=== PATIENT | female | born 1950 | race Caucasian/White ===

== ENCOUNTER → 2017-07-14 | Outpatient (CLI) | payer MEDICARE, BC ==
[~2017-07-14] MED LIST: ANAS1 PO; ASPI81TA23 PO; BUPR150T3 PO; CALC1TAB12 PO; GLUC1TAB38 PO; MULTTAB67 PO; SACC1CAP3 PO
[2017-07-14 14:13] LABS: AUTOMATED NEUTROPHIL # 4.1 TH/MM3 (1.8-7.7); BASOPHIL # 0.1 TH/MM3 (0-0.2); EOSINOPHIL % 0.7 % (0.0-4.0); HEMATOCRIT 38.4 % (35.0-46.0); HEMOGLOBIN 12.9 GM/DL (11.6-15.3); LYMPH % 20.8 % (9.0-44.0); LYMPHOCYTE # 1.2 TH/MM3 (1.0-4.8); MEAN CELL VOLUME 93.6 FL (80.0-100.0); MEAN CORPUSCULAR HEMOGLOBIN 31.5 PG (27.0-34.0); MEAN CORPUSCULAR HGB CONC 33.7 % (32.0-36.0); MEAN PLATELET VOLUME 7.8 FL (7.0-11.0); MONOCYTE # 0.5 TH/MM3 (0-0.9); NEUT % 69.5 % (16.0-70.0); PLATELET COUNT 254 TH/MM3 (150-450); WHITE BLOOD COUNT 5.9 TH/MM3 (4.0-11.0)
[2017-07-14 14:19] LABS: BILIRUBIN, URINE NEG (NEG); BLOOD, URINE NEG (NEG); GLUCOSE,URINE NEG (NEG); KETONE, URINE NEG (NEG); MUCUS URINE FEW /lpf (OCC); NITRITE,URINE NEG (NEG); PH, URINE 5.5 (5.0-8.5); URINE COLOR COLORLESS (YELLW/STRAW); URINE LEUKOCYTE ESTERASE NEG (NEG)
--- NOTE | 2017-07-15 14:42 | EKG ---
Date Performed: 07/14/2017 Time Performed: 12:49:27 PTAGE: 67 years EKG: Sinus rhythm POSSIBLE LEFT ATRIAL ENLARGEMENT INCOMPLETE RIGHT BUNDLE BRANCH BLOCK BORDERLINE ECG NO PREVIOUS TRACING DOCTOR: Angle Sorenson Interpretating Date/Time 07/15/2017 14:33:16
== END ==
LOC: CPRE 12:22
PROVIDERS: ATTEND Obstetrics & Gynecology
DX: Z01.810 Encounter for preprocedural cardiovascular examination (principal); Z01.812 Encounter for preprocedural laboratory examination; D25.9 Leiomyoma of uterus, unspecified; N95.0 Postmenopausal bleeding; R10.2 Pelvic and perineal pain; R94.31 Abnormal electrocardiogram [ECG] [EKG]
CPT/HCPCS: 36415; 81001; 85025; 93005

== ENCOUNTER 2017-07-16 12:05 | Observation (INO) | payer MEDICARE, BC ==
--- NOTE | 2017-07-15 13:00 | MH ---
cc: RORY NAPIER DATE OF ADMISSION 07/16/2017 DATE OF 1950 ADMISSION DIAGNOSIS Postmenopausal bleeding with dysmenorrhea and fibroids. HISTORY OF PRESENT ILLNESS The patient is a 66-year-old white female para 1-0-1-1 who was referred by Dr[address] Owens on 04/21/2017 for postmenopausal bleeding. Her Pap smear on 04/21 showed only a few cells with inflammation. Her vaginal ultrasound from 04/25/2017 had showed calcified fibroids, endometrium at 2 mm. She had a history of a D&C in 1998 and 2014. She is now admitted for surgical evaluation. PAST MEDICAL HISTORY Additional surgery: 1. left mastectomy in 2011 for carcinoma 2. Reconstruction 2011 and 2013. MEDICATIONS 1. Anastrazole 2. Wellbutrin ALLERGIES None TRANSFUSIONS None OBSTETRICAL HISTORY in 1997 for a male. SOCIAL HISTORY Retired, . Alcohol occasional, tobacco none. Drugs none. FAMILY HISTORY Noncontributory PHYSICAL EXAM This is a well-nourished, well-developed white female. VITAL SIGNS: Stable. HEENT: Exam is normal. CHEST: Clear. HEART: Regular rate. BREASTS: The breasts are symmetrical with the left reconstructed. ABDOMEN: Benign. PELVIC: Normal external genitalia and BUS. Vagina is normal, cervix normal. Uterus is normal size and shape. Adnexa nonpalpable. ASSESSMENT As above. PLAN She is now admitted for a D&C, frozen section with laparoscopy, possible LASH/BSO, possible LAVH/BSO, possible STEPHANIE/BSO. While in the office, I have explained the procedures, the risks, benefits and complications including infection, injury, bleeding and the patient would like to proceed. MD SENIA Fletcher/MERCEDES /12:43 PM 12:50 PM EMILY
[~2017-07-16] VITALS: Ht 154.9 cm; Wt 51.6 kg
[~2017-07-16 12:05] MED LIST changes: +GLYCOPYRROLATE 1 MG/5 ML SYRINGE IV PUSH ONE; +KETOROLAC TROMETHAMINE 30 MG/ML (IVP) VIAL IV PUSH ONE; +LACTATED RINGER'S 1000 ML INJ 2,000 ML IV ONE; +LIDOCAINE HCL 1% PF 5 ML SYRINGE OTHER ONE; +NEOSTIGMINE 5 MG/5 ML SYRINGE IV PUSH ONE; +NORMOSOL R INJ 1,000 ML IV ONE; +ONDANSETRON HCL 4 MG/2 ML VIAL IV ONE; +PHENYLEPH/NS 1000 MCG/10 ML SYR IV ONE; +PROPOFOL 200 MG/20 ML AMP IV ONE; +ROCURONIUM INJ 50 MG/5 ML SYRINGE IV PUSH ONE; +ePHEDrine/NS 25 MG/5 ML SYRINGE IV ONE
[2017-07-16] MEDS ORDERED: ceFAZolin 1,000 MG/NS 100 ML IV SCH ×2 (12:30)
[2017-07-16] MEDS ORDERED: ACETAMINOPHEN 1000 MG/100 ML 100 ML IV SCH (12:30)
[2017-07-16] MEDS ORDERED: CHLORHEXIDINE GLUCONATE 2 % 1 PACK (2 CLOTHS) TOPICAL PRN (13:15)
[2017-07-16] MEDS ORDERED: METOPROLOL TARTRATE 25 MG TAB PO PRN (13:15)
[2017-07-16] MEDS ORDERED: SODIUM CHLORID 0.9% 500 ML IV PRN (13:15)
[2017-07-16] MEDS ORDERED: LACTATED RINGER'S 1000 ML IV PRN (13:15)
[2017-07-16] MEDS ORDERED: POVIDONE IODINE 5% (ANTISEPSIS KIT) 4 APPLICATIONS EACH NARE PRN (13:15)
[2017-07-16] MEDS ORDERED: BUPIVACAINE LIPOSOME PF 1.3% 20 ML VIAL ONE (13:54)
[2017-07-16] MEDS ORDERED: LIDOCAINE HCL 1% PF 5 ML AMPULE ONE (13:55)
[2017-07-16] MEDS ORDERED: MIDAZOLAM HCL 2 MG/2 ML VIAL ONE ×2 (13:55)
[2017-07-16] MEDS ORDERED: diphenhydrAMINE HCL 25 MG CAP PO PRN (18:15)
[2017-07-16] MEDS ORDERED: ONDANSETRON HCL 4 MG/2 ML VIAL IV PUSH PRN (18:15)
[2017-07-16] MEDS: KETOROLAC TROMETHAMINE 30 MG/ML (IVP) VIAL IVP SCH (18:15)
[2017-07-16] MEDS ORDERED: PROMETHAZINE INJ 25 MG/ML VIAL IM PRN (18:15)
[2017-07-16] MEDS ORDERED: ZOLPIDEM TARTRATE 5 MG TAB PO PRN (18:15)
[2017-07-16] MEDS ORDERED: HYDROmorphone HCL PF 2 MG/ML VIAL IV PRN (18:30)
[2017-07-16] MEDS ORDERED: DO NOT ADM ANY ANTICOAGULANT DRUGS PRN (18:45)
[2017-07-16] MEDS: D5-1/2 NS + KCL 20 MEQ INJ 1,000 ML IV SCH (19:00)
[2017-07-16] MEDS ORDERED: *morphine SULFATE 10 MG/ML PERIprocedure ONLY ONE (19:12)
[2017-07-16] MEDS ORDERED: LACTATED RINGER'S 1000 ML INJ 500 ML IV ONE (20:00)
[2017-07-16 20:27] LABS: HEMATOCRIT 31.9 % (35.0-46.0); HEMOGLOBIN 10.6 GM/DL (11.6-15.3)
[2017-07-16 20:45] VITALS: BP 110/69; PULSE 73; RESP 18; TEMP 97.6; O2SAT 97
[2017-07-16] MEDS: ACETAMINOPHEN 1000 MG/100 ML VIAL IV SCH (22:07)
[2017-07-16] MEDS: DOCUSATE SODIUM 100 MG CAP PO SCH (22:07)
[2017-07-16 23:53] VITALS: BP 92/50; PULSE 61; RESP 16; TEMP 97.9; O2SAT 97
[2017-07-17] MEDS: KETOROLAC TROMETHAMINE 30 MG/ML (IVP) VIAL IVP SCH ×2 (00:27→06:00)
[2017-07-17 04:00] VITALS: BP 93/59; PULSE 67; RESP 18; TEMP 98.2; O2SAT 97
[2017-07-17] MEDS: D5-1/2 NS + KCL 20 MEQ INJ 1,000 ML IV SCH (04:08)
[2017-07-17 04:13] LABS: AUTOMATED NEUTROPHIL # 7.9 TH/MM3 (1.8-7.7); BASOPHIL % 0.2 % (0.0-2.0); EOSINOPHIL % 0.1 % (0.0-4.0); HEMATOCRIT 29.5 % (35.0-46.0); HEMOGLOBIN 10.1 GM/DL (11.6-15.3); LYMPH % 8.4 % (9.0-44.0); LYMPHOCYTE # 0.8 TH/MM3 (1.0-4.8); MEAN CELL VOLUME 93.3 FL (80.0-100.0); MEAN CORPUSCULAR HEMOGLOBIN 31.8 PG (27.0-34.0); MEAN CORPUSCULAR HGB CONC 34.1 % (32.0-36.0); MEAN PLATELET VOLUME 7.7 FL (7.0-11.0); MONOCYTE # 0.5 TH/MM3 (0-0.9); NEUT % 86.3 % (16.0-70.0); PLATELET COUNT 207 TH/MM3 (150-450); RED BLOOD COUNT 3.16 MIL/MM3 (4.00-5.30); WHITE BLOOD COUNT 9.1 TH/MM3 (4.0-11.0)
[2017-07-17 04:39] LABS: BICARBONATE 25.9 MEQ/L (21.0-32.0); CALCIUM 6.9 MG/DL (8.5-10.1); CREATININE 0.56 MG/DL (0.50-1.00)
[2017-07-17] MEDS: ACETAMINOPHEN 1000 MG/100 ML VIAL IV SCH (06:00)
[2017-07-17 08:00] VITALS: BP 94/57; PULSE 66; RESP 14; TEMP 97.8; O2SAT 96
[2017-07-17] MEDS: DOCUSATE SODIUM 100 MG CAP PO SCH (08:24)
[2017-07-17] MEDS ORDERED: buPROPion HCL 150 MG SUSTAINED RELEASE TAB PO SCH (09:00)
[2017-07-17] MEDS ORDERED: ANASTROZOLE 1 MG TAB PO SCH (09:00)
--- NOTE | 2017-07-17 12:18 | MP ---
cc: RORY NAPIER DATE OF SURGERY 07/16/2017 PREOPERATIVE DIAGNOSIS Postmenopausal bleeding secondary to uterine fibroids and atrophy. POSTOPERATIVE DIAGNOSIS Postmenopausal bleeding secondary to uterine fibroids and atrophy. PROCEDURE D&C frozen, followed by [facility]REIDA OLVERA. ANESTHESIA General ET. SURGEON Rory Napier MD DEVOPS DEVELOPER GILA Medina ESTIMATED BLOOD LOSS About 50 cc FLUIDS 1.8 liters crystalloid. OBJECTIVE FINDINGS Following the induction of adequate general endotracheal anesthesia the patient was prepped and draped supine on the operating table in the dorsal lithotomy position in the usual sterile fashion with the bladder being drained by Hernandez catheterization. Exam under anesthesia revealed an irregular anterior uterus with no adnexal masses. A heavy weighted speculum was placed in the posterior fornix of the vagina. The cervix was small and stenotic. It was grasped anteriorly with single-tooth tenaculum and sounded to 8 cm. It was dilated to a #16 Hanks dilator. Endocervical curettings were sent for permanent study. The endometrium was small in quantity, sent for frozen but had a very benign appearance. The abdomen through a 3-cm curving infraumbilical incision using a knife to cut down through the skin to the fascia. The fascia was opened transversely, the peritoneum entered bluntly without incident. The mini-GelPort was placed, laparoscope inserted, a 5-port placed in the left lower quadrant, the same in the right lower quadrant. The uterus was about 12 weeks' size with multiple fibroids. There were some adhesions from the previous . Anteriorly the ovaries were normal. Cul-de-sacs were clear. Liver edge was normal. Working first on the left harmonic scalpel was used take the left ovarian vessels, left round ligament, left broad ligament, left uterine vessels and left-sided bladder flap. Same done on the right. Frozen section returned with no tissue for study. The endometrial tissue was felt to be benign. The harmonic scalpel was used to amputate the fundus from the cervix and the pouch was used to extract the fundus, tubes and ovaries. Irrigation was performed. There was no bleeding. The ureters were inspected; good peristalsis. The bladder was filled with saline with no leakage. Low-pressure tests revealed no bleeding. The operative site was now coated with Evicel, the GelPort removed, the wounds sutured with 2-0 Vicryl running for the peritoneum, 0 Vicryl running locking for the fascia from corners to the midline and tied; the subcu closed with running 3-0 Vicryl and the skin with a running subcuticular 3-0 Monocryl. The scope was now reinserted through the low port sites and used to inspect the GelPort site which was well closed with no entrapment of tissue, no bleeding. The pelvis was inspected; there was no bleeding. The scope was now removed, the gas allowed to escape, the ports removed and sutured with 3-0 Monocryl subcuticular, Dermabond applied. All counts were correct and the patient was awakened and taken to the recovery room in good condition. MD SENIA Fletcher/NORAH /6:11 PM /11:49 AM
== END 2017-07-17 12:46 | disposition home or self-care (01) ==
LOC: HSDC 12:05 → EDUNIT# 15:15 → H1EA 20:41
PROVIDERS: ADMIT Obstetrics & Gynecology; ATTEND Obstetrics & Gynecology
DX: D25.9 Leiomyoma of uterus, unspecified (principal); N95.0 Postmenopausal bleeding; N94.6 Dysmenorrhea, unspecified; Z90.10 Acquired absence of unspecified breast and nipple
CPT/HCPCS: 00840; 58542; 64488; 80048; 84155; 85014; 85018; 85025; 88305; 88307; 88311; 88329; 96374; 96375; 96376; C9290; G0378; J0131; J0690; J1885; J2250; J2270; J2370; J2405; J2710; J3010; J3480; J7120